=== PATIENT | female | born 1980 | race Caucasian/White ===

== ENCOUNTER 2017-11-12 16:14 | Emergency (ER) | payer MEDICAID, OTHER ==
[2017-11-12 16:56] LABS: ABS Basophils 0.1 10^3/ul (0-0.2); ABS Eosinophils 0.1 10^3/ul (0-0.6); ABS Lymphocytes 2.6 10^3/ul (1.0-4.8); ABS Monocytes 0.4 10^3/ul (0-0.8); ABS Neutrophils 6.2 10^3/ul (1.5-7.7); ABS Nucleated RBC 0 10^3/ul; Eosinophil % 0.6 % (0-6); Hematocrit 46 % (35-47); Hemoglobin 16.2 g/dl (12.0-16.0); Lymphocyte % 27.8 % (25-47); Mean Corpuscular HGB Conc 35 g/dl (31-36); Mean Corpuscular Hemoglobin 34 pg (27-31); Mean Corpuscular Volume 97 fL (80-97); Mean Platelet Volume 9.5 um3 (7.4-10.4); Nucleated Red Blood Cells % 0.1; Platelet Count 171 10^3/ul (150-450); Red Blood Count 4.77 10^6/ul (4.00-5.40); Red Cell Distribution Width 13 % (10.5-15); White Blood Count 9.3 10^3/ul (3.5-10.8)
[2017-11-12] MEDS ORDERED: NS 0.9% 1000 ML* 1,000 ML IV ONE (17:09)
[2017-11-12] MEDS ORDERED: Ondansetron INJ* 2 MG/ML VIAL IV ONE (17:09)
[2017-11-12] MEDS: Morphine VIAL* 10 MG/ML 1 ML VIAL IV ONE ×2 (17:18→18:43)
[2017-11-12 17:30] LABS: EGFR Non-African American 95.7 (>60)
--- NOTE | 2017-11-12 17:37 | ED ---
Abdominal Pain/Female - HPI Summary HPI Summary: This patient is a 37 year old F presenting to [facility] accompanied by her S.O. with a chief complaint of gradually worsening diffuse severe abd pain since this AM. She notes that the pain started as a cramping pain in her lower abd. She denies fever, N/V/D, and back pain. She endorses spotting/vaginal bleeding. NKDA. SHx . - History of Current Complaint Chief Complaint: EDAbdPain Stated Complaint: ABD PAIN Time Seen by Provider: 11/12/17 16:33 Hx Obtained From: Patient ?: No Onset/Duration: Gradual Onset, Lasting Hours, Still Present, Worse Since - gradually Timing: Constant Severity Initially: Moderate Severity Currently: Severe Pain Intensity: 8 Pain Scale Used: 0-10 Numeric Location: Diffuse Radiates: No Character: Sharp, Cramping Aggravating Factor(s): Nothing Alleviating Factor(s): Nothing Associated Signs and Symptoms: Positive: Vaginal Bleeding - "spotting". Negative: Fever, Back Pain, Nausea, Vomiting, Diarrhea Allergies/Adverse Reactions: Allergies Allergy/AdvReac Type Severity Reaction Status Date / Time No Known Allergies Allergy Verified 11/12/17 16:43 PMH/Surg Hx/FS Hx/Imm Hx Endocrine/Hematology History: Denies: Hx Sickle Cell Disease Cardiovascular History: Denies: Hx Pacemaker/ICD Respiratory History: Denies: Hx Lung Cancer GI History: Denies: Hx Ileostomy History: Denies: Hx Dialysis Sensory History: Denies: Hx Legally Blind, Hx Deafness Opthamlomology History: Denies: Hx Legally Blind EENT History: Denies: Hx Deafness Neurological History: Denies: Hx Dementia Psychiatric History: Denies: Hx Schizophrenia Infectious Disease History: No Infectious Disease History: Denies: Traveled Outside the [place] in Last 30 Days - Family History Known Family History: Negative: Blood Disorder - Social History Lives: With Family Alcohol Use: Weekly Hx Substance Use: No Substance Use Type: Reports: None Smoking Status (MU): Light Every Day Tobacco Smoker Review of Systems Negative: Fever, Chills Negative: Erythema Negative: Sore Throat Negative: Chest Pain Negative: Shortness Of Breath, Cough Positive: Abdominal Pain. Negative: Vomiting, Diarrhea, Nausea Positive: discharge - vaginal, spotting. Negative: dysuria, hematuria Negative: Myalgia, Edema Negative: Rash Neurological: Other - NEGATIVE: dizziness All Other Systems Reviewed And Are Negative: Yes Physical Exam - Summary Physical Exam Summary: Constitutional: Well-developed, Well-nourished, Alert. (-) Distressed Skin: Warm, Dry HENT: Normocephalic; Atraumatic Eyes: Conjunctiva normal Neck: Musculoskeletal ROM normal neck. (-) JVD, (-) Stridor, (-) Tracheal deviation Cardio: Rhythm regular, rate normal, Heart sounds normal; Intact distal pulses; The pedal pulses are 2+ and symmetric. Radial pulses are 2+ and symmetric. (-) Murmur Pulmonary/Chest wall: Effort normal. (-) Respiratory distress, (-) Wheezes, (-) Rales Abd: Soft, (-) epigastric tenderness, (-) Distension, (+) Guarding, (+) Rebound tenderness. Peritoneal signs with diffuse tenderness Musculoskeletal: (-) Edema Lymph: (-) Cervical adenopathy Neuro: Alert, Oriented x3 Psych: Mood and affect Normal Pelvic: With hospital aid Leatha as distillation operator: exam was unremarkable, no CMT. Adnexal tenderness. Triage Information Reviewed: Yes Vital Signs On Initial Exam: Initial Vitals Temp Pulse Resp BP Pulse Ox 98.2 F 71 21 133/96 97 11/12/17 16:16 11/12/17 16:16 11/12/17 16:16 11/12/17 16:16 11/12/17 16:16 Vital Signs Reviewed: Yes Diagnostics - Vital Signs Vital Signs Temp Pulse Resp BP Pulse Ox 11/12/17 17:18 24 11/12/17 16:38 70 97 11/12/17 16:36 70 139/92 98 11/12/17 16:16 98.2 F 71 21 133/96 97 - Laboratory Lab Results: Lab Results 11/12/17 11/12/17 11/12/17 Range/Units 16:47 16:47 16:47 WBC 9.3 (3.5-10.8) 10^3/ul RBC 4.77 (4.00-5.40) 10^6/ul Hgb 16.2 H (12.0-16.0) g/dl Hct 46 (35-47) % MCV 97 (80-97) fL MCH 34 H (27-31) pg MCHC 35 (31-36) g/dl RDW 13 (10.5-15) % Plt Count 171 (150-450) 10^3/ul MPV 9.5 (7.4-10.4) um3 Neut % (Auto) 66.6 (38-83) % Lymph % (Auto) 27.8 (25-47) % [place] % (Auto) 4.4 (0-7) % Eos % (Auto) 0.6 (0-6) % Baso % (Auto) 0.6 (0-2) % Absolute Neuts (auto) 6.2 (1.5-7.7) 10^3/ul Absolute Lymphs (auto) 2.6 (1.0-4.8) 10^3/ul Absolute Monos (auto) 0.4 (0-0.8) 10^3/ul Absolute Eos (auto) 0.1 (0-0.6) 10^3/ul Absolute Basos (auto) 0.1 (0-0.2) 10^3/ul Absolute Nucleated RBC 0 10^3/ul Nucleated RBC % 0.1 Sodium 137 (135-145) mmol/L Potassium 3.9 (3.5-5.0) mmol/L Chloride 107 (101-111) mmol/L Carbon Dioxide 22 (22-32) mmol/L Anion Gap 8 (2-11) mmol/L BUN 9 (6-24) mg/dL Creatinine 0.69 (0.51-0.95) mg/dL Est GFR ( Amer) 115.8 (>60) Est GFR (Non-Af Amer) 95.7 (>60) BUN/Creatinine Ratio 13.0 (8-20) Glucose 103 H (70-100) mg/dL Lactic Acid 0.8 (0.5-2.0) mmol/L Calcium 9.6 (8.6-10.3) mg/dL Total Bilirubin 0.40 (0.2-1.0) mg/dL AST 16 (13-39) U/L ALT 13 (7-52) U/L Alkaline Phosphatase 58 (34-104) U/L C-Reactive Protein 1.72 (<8.01) mg/L Total Protein 7.0 (6.4-8.9) g/dL Albumin 4.5 (3.2-5.2) g/dL Globulin 2.5 (2-4) g/dL Albumin/Globulin Ratio 1.8 (1-3) Lipase 15 (11.0-82.0) U/L Beta HCG, Quant 1.36 mIU/mL Result Diagrams: 11/12/17 16:47 11/12/17 16:47 Lab Statement: Any lab studies that have been ordered have been reviewed, and results considered in the medical decision making process. - Radiology CXR Xray Interpretation: No Acute Changes Radiology Interpretation Completed By: ED Physician - No free air. Pending official imaging report., Radiologist - CT A/P CT Interpretation: Positive (See Comments) CT Interpretation Completed By: Radiologist - 1. Uterine fibroid. 2. No acute intra-abdominal findings. Dr. Lynch has reviewed this report. - Ultrasound No standard instances Ultrasound Interpretation: Positive (See Comments) Ultrasound Interpretation Completed By: Radiologist - US TV: uterine fibroid, otherwise normal US. Re-Evaluation - Re-Evaluation First Eval Re-Evaluation Time: 22:07 Change: Improved Comment: Localized to suprapubic tenderness. Abdominal Pain Fem Course/Dx - Course Course Of Treatment: A 37-year-old F presents to the ED with a CC of diffuse, severe abd pain since this AM. (+) spotting/light vaginal bleeding. (-) N/V/D, fever, back pain. Pt started as mild lower abd cramping, has since worsened to severe sharp diffuse abd pain. A CXR was (-). A US TV reveals uterine fibroid, but is an otherwise normal US. A CT A/P reveals uterine fibroid but was otherwise (-) . In the ED course, pt was given nl saline, morphine, and zofran. Pt showed urine bacteria, squamous epi cells, and urine blood, but labs were otherwise nl. - Diagnoses Provider Diagnoses: Uterine fibroid Discharge - Sign-Out/Discharge Documenting (check all that apply): Patient Departure - discharge - Discharge Plan Condition: Stable Disposition: HOME Patient Education Materials: Hysterectomy (DC) Referrals: Nirali High [Primary Care Provider] - 2 Days Additional Instructions: Return to the emergency department for any new or worsening symptoms. - Attestation Statements Document Initiated by Scribe: Yes Documenting Scribe: Simon Tovar Provider For Whom Scribe is Documenting (Include Credential): Dr. Anish Lynch MD Scribe Attestation: Simon Thompson, scribed for Dr. Anish Lynch MD on 11/12/17 at 2228.
[2017-11-12] MEDS ORDERED: Iohexol 300* (CONTRAST) 10 ML SDV IV ONE (17:48)
[2017-11-12 18:52] LABS: Urine Appearance Cloudy; Urine Blood 3+ (Negative); Urine Color Yellow; Urine Ketones Negative (Negative); Urine Protein Negative (Negative); Urine Specific Gravity 1.006 (1.010-1.030); Urine Urobilinogen Negative (Negative)
[2017-11-12 18:54] LABS: Urine Red Blood Cell Trace(0-2/hpf) (Absent); Urine White Blood Cell Trace(0-5/hpf) (Absent)
--- NOTE | 2017-11-12 19:17 | RAD ---
EXAM: US Pelvis, Transvaginal CLINICAL HISTORY: 37 years old, female; Pain; Pelvic pain; Patient HX: Patient states "labor like" pains; Additional info: Low abd pain TECHNIQUE: Real-time transvaginal pelvic ultrasound (complete) with image documentation. Transvaginal imaging was used for better evaluation of the endometrium and adnexa. COMPARISON: No relevant prior studies available. FINDINGS: Uterus/cervix: IUD in place. Uterus measures 10.5 x 5.8 x 6.8 cm. Fundal fibroid is present measuring 2.7 x 3.5 cm. Endometrial stripe measures 3.6 mm. Right ovary: Right ovary measures 2.7 x 1.7 x 3.2 cm. No solid mass or pathological cyst. Normal blood flow. Left ovary: Left ovary measures 2.8 x 1.4 x 2.3 cm. No solid mass or pathological cyst. Normal blood flow. Free fluid: No free fluid. Bladder: Empty bladder which cannot be evaluated with this probe. IMPRESSION: 1. Uterine fibroid. 2. Otherwise normal pelvic ultrasound.
--- NOTE | 2017-11-12 22:24 | RAD ---
EXAM: CT Abdomen and Pelvis With Intravenous Contrast CLINICAL HISTORY: 37 years old, female; Pain; Abdominal pain; Other: Eval for perf; Additional info: Peritoneal signs; Eval for perf TECHNIQUE: Axial computed tomography images of the abdomen and pelvis with intravenous contrast. All CT scans at this facility use at least one of these dose optimization techniques: automated exposure control; mA and/or kV adjustment per patient size (includes targeted exams where dose is matched to clinical indication); or iterative reconstruction. Coronal and sagittal reformatted images were created and reviewed. CONTRAST: 84 mL of VISI administered intravenously. COMPARISON: TRANS US TRANSVAGINAL 11/12/2017 5:56 PM FINDINGS: Lung bases: Unremarkable. No mass. No consolidation. ABDOMEN: Liver: Unremarkable. No mass. Gallbladder and bile ducts: Unremarkable. No calcified stones. No ductal dilation. Pancreas: Unremarkable. No mass. No ductal dilation. Spleen: Unremarkable. No splenomegaly. Adrenals: Unremarkable. No mass. Kidneys and ureters: Unremarkable. No solid mass. No hydronephrosis. Stomach and bowel: Unremarkable. No obstruction. No mucosal thickening. PELVIS: Appendix: No findings to suggest acute appendicitis. Appendix not clearly identified. Bladder: Unremarkable. No mass. Reproductive: IUD present. Uterine fibroid present in the fundus. ABDOMEN and PELVIS: Intraperitoneal space: Unremarkable. No free air. No significant fluid collection. Bones/joints: Disc space narrowing at the L5-S1 level. No acute fracture. No dislocation. Soft tissues: Unremarkable. Vasculature: Unremarkable. No abdominal aortic aneurysm. Lymph nodes: Unremarkable. No enlarged lymph nodes. IMPRESSION: 1. Uterine fibroid. 2. No acute intra-abdominal findings.
[2017-11-12] MEDS ORDERED: Ibuprofen TAB* 600 MG PO ONE (22:37)
[2017-11-12 22:57] VITALS: BP 101/64
--- NOTE | 2017-11-13 06:51 | RAD ---
INDICATION: Peritonitis. COMPARISON: There are no relevant prior studies available for comparison. TECHNIQUE: A portable view of the chest was obtained. FINDINGS: Cardiac and mediastinal contours appear to be within normal limits. The lungs are clear. No pleural effusion is seen. No free intraperitoneal air is seen. IMPRESSION: NO EVIDENCE FOR ACUTE DISEASE. R1
== END 2017-11-12 23:18 | disposition home or self-care (01) ==
LOC: ED 16:14
DX: D25.9 Leiomyoma of uterus, unspecified (principal); F17.200 Nicotine dependence, unspecified, uncomplicated
CPT/HCPCS: 36415; 71045; 74177; 76830; 80053; 81003; 81015; 83605; 83690; 84702; 85025; 86140; 86850; 86900; 86901; 87086; 87480; 87491; 87510; 87591; 87661; 96374; 96375; 99283; A9270-GY; J2270; J2405; Q9967